=== PATIENT | male | born 1950 | race Caucasian/White ===

== ENCOUNTER 2022-12-31 16:22 | Emergency (ER) | payer SELFPAY ==
[2022-12-31] MEDS ORDERED: Bacitracin 1 PK ONE (16:43)
== END 2022-12-31 16:50 | disposition home or self-care (01) ==
LOC: BURERS 16:22
DX: T23.101A Burn of first degree of right hand, unspecified site, initial encounter (principal); T23.102A Burn of first degree of left hand, unspecified site, initial encounter; E11.9 Type 2 diabetes mellitus without complications; E78.00 Pure hypercholesterolemia, unspecified; I10 Essential (primary) hypertension; W86.1XXA Exposure to industrial wiring, appliances and electrical machinery, initial encounter
CPT/HCPCS: 99282